=== PATIENT | female | born 1995 | race Caucasian/White ===

== ENCOUNTER 2017-05-18 09:21 | Emergency (ER) | payer MEDICAID ==
[~2017-05-18] VITALS: Ht 160 cm; Wt 101.6 kg
[~2017-05-18 09:21] MED LIST: MOTRIN 600600 MG/TAB PO; PERCOCET 325 MG1 TA2 PO
[2017-05-18 09:26] VITALS: BP 123/73; TEMP 97.1
[2017-05-18] MEDS ORDERED: AMOXICILLIN 50500 MG PO (10:21)
[2017-05-18] MEDS ORDERED: MAGIC MOUTH PO (10:24)
[2017-05-18 10:41] VITALS: PULSE 82
== END 2017-05-18 10:41 | disposition home or self-care (01) ==
LOC: COL.ER 09:21
DX: J02.0 Streptococcal pharyngitis (principal)

== ENCOUNTER 2017-06-23 16:03 | Emergency (ER) | payer MEDICAID ==
[~2017-06-23] VITALS: Ht 160 cm; Wt 81.8 kg
[~2017-06-23 16:03] MED LIST changes: +AMOXICILLIN 50500 MG PO; +MAGIC MOUTH PO
[2017-06-23 16:33] VITALS: BP 137/88; PULSE 87; TEMP 98.6
== END 2017-06-23 18:00 | disposition left against medical advice (07) ==
LOC: COL.ER 16:03
DX: R05 Cough (principal)

== ENCOUNTER 2017-08-11 18:09 | Emergency (ER) | payer BC ==
[~2017-08-11] VITALS: Ht 160 cm; Wt 81.8 kg
[2017-08-11 18:19] VITALS: BP 156/83; PULSE 99; TEMP 98.2
== END 2017-08-11 19:10 | disposition left against medical advice (07) ==
LOC: COL.ER 18:09
DX: Z11.3 Encounter for screening for infections with a predominantly sexual mode of transmission (principal)

== ENCOUNTER 2017-10-22 13:20 | Emergency (ER) | payer BC ==
[~2017-10-22] VITALS: Ht 160 cm; Wt 106.8 kg
[2017-10-22 13:29] VITALS: TEMP 98
[2017-10-22 14:18] LABS: COLLECTION METHOD CLEAN CATCH
[2017-10-22 14:28] LABS: MUCOUS Present /lpf; PH 5 (5-8); SQUAMOUS EPITHELIAL 20-50 /hpf; URINE APPEARANCE Cloudy; URINE BACTERIA Rare /hpf; URINE BILIRUBIN Negative (NEGATIVE); URINE BLOOD Negative (NEGATIVE); URINE COLOR Amber; URINE GLUCOSE Negative (NEGATIVE); URINE KETONE Negative (NEGATIVE); URINE LEUKOCYTE ESTERASE Negative (NEGATIVE); URINE NITRATE Negative (NEGATIVE); URINE PROTEIN(semi-quant) 1+ (NEGATIVE); URINE UROBILINOGEN Negative (NEGATIVE)
[2017-10-22] MEDS ORDERED: MACROBID 1100 MG/CAP PO (16:27)
[2017-10-22] MEDS ORDERED: FLAGYL500 MG PO (16:27)
[2017-10-22 16:53] VITALS: BP 138/103; PULSE 74
[2017-10-22] MEDS ORDERED: ZITHROMAX500 M2 PO (18:54)
== END 2017-10-22 16:47 | disposition home or self-care (01) ==
LOC: COL.ER 13:20
DX: S09.90XA Unspecified injury of head, initial encounter (principal); N39.0 Urinary tract infection, site not specified; N76.0 Acute vaginitis; W22.8XXA Striking against or struck by other objects, initial encounter; Y92.009 Unspecified place in unspecified non-institutional (private) residence as the place of occurrence of the external cause

== ENCOUNTER 2017-11-19 10:14 | Emergency (ER) | payer BC ==
[~2017-11-19] VITALS: Ht 160 cm; Wt 104.5 kg
[~2017-11-19 10:14] MED LIST changes: +FLAGYL500 MG PO; +MACROBID 1100 MG/CAP PO; +ZITHROMAX500 M2 PO
[2017-11-19 10:19] VITALS: BP 122/90; TEMP 98.2
[2017-11-19 10:31] LABS: COLLECTION METHOD CLEAN CATCH
[2017-11-19 10:41] LABS: BASO # 0.1 (0.0-0.2); BASO % 0.5 % (0.0-2.0); EOS # 0.1 (0.0-0.7); EOS % 0.9 % (0-4.0); GRAN # 7.4 (1.4-6.5); GRAN % 67.5 % (42.2-75.2); HEMATOCRIT 39.6 % (37.0-47.0); HEMOGLOBIN 13.4 g/dl (12.5-16.0); LYMPH # 2.6 (1.2-3.4); LYMPH % 23.8 % (20.0-51.0); MEAN CELL VOLUME 88 fl (80.0-100.0); MEAN CORPUSCULAR HEMOGLOBIN 30 pg (27.0-31.0); MEAN CORPUSCULAR HGB CONC 34 g/dl (33.0-37.0); MEAN PLATELET VOLUME 9.3 fl (7.4-10.4); MONO # 0.8 (0.1-0.6); MONO % 6.9 % (1.7-9.3); PLATELET COUNT 496 K/mm3 (130-400); REDCELL DISTRIBUTION WIDTH-CV 12.5 % (11.5-14.5)
[2017-11-19 10:43] LABS: MUCOUS Present /lpf; PH 6 (5-8); URINE APPEARANCE Clear; URINE BACTERIA None Seen /hpf; URINE BILIRUBIN Negative (NEGATIVE); URINE BLOOD Negative (NEGATIVE); URINE COLOR Yellow; URINE GLUCOSE Negative (NEGATIVE); URINE KETONE Negative (NEGATIVE); URINE LEUKOCYTE ESTERASE Negative (NEGATIVE); URINE NITRATE Negative (NEGATIVE); URINE PROTEIN(semi-quant) Negative (NEGATIVE); URINE RBC 0-2 /hpf; URINE UROBILINOGEN Negative (NEGATIVE)
[2017-11-19 11:57] VITALS: PULSE 89
== END 2017-11-19 11:58 | disposition home or self-care (01) ==
LOC: COL.ER 10:14
PROVIDERS: Family Medicine
DX: O20.0 Threatened abortion (principal)

== ENCOUNTER 2017-12-23 18:04 | Emergency (ER) | payer BC ==
[~2017-12-23] VITALS: Ht 160 cm; Wt 102.3 kg
[2017-12-23 18:07] VITALS: BP 124/79; PULSE 109; TEMP 98.4
[2017-12-23 18:36] LABS: BASO # 0.1 (0.0-0.2); BASO % 0.4 % (0.0-2.0); EOS # 0.1 (0.0-0.7); EOS % 0.5 % (0-4.0); GRAN # 9.3 (1.4-6.5); GRAN % 69.6 % (42.2-75.2); HEMATOCRIT 38.4 % (37.0-47.0); HEMOGLOBIN 13.1 g/dl (12.5-16.0); LYMPH # 3.1 (1.2-3.4); LYMPH % 23.2 % (20.0-51.0); MEAN CELL VOLUME 86 fl (80.0-100.0); MEAN CORPUSCULAR HEMOGLOBIN 29 pg (27.0-31.0); MEAN CORPUSCULAR HGB CONC 34 g/dl (33.0-37.0); MEAN PLATELET VOLUME 9.7 fl (7.4-10.4); MONO # 0.8 (0.1-0.6); PLATELET COUNT 477 K/mm3 (130-400); RED BLOOD COUNT 4.47 M/mm3 (4.10-5.30); REDCELL DISTRIBUTION WIDTH-CV 12.1 % (11.5-14.5)
== END 2017-12-23 19:45 | disposition home or self-care (01) ==
LOC: COL.ER 18:04
PROVIDERS: Emergency Medicine
DX: O26.891 Other specified pregnancy related conditions, first trimester (principal); R10.9 Unspecified abdominal pain; Z3A.11 11 weeks gestation of pregnancy

== ENCOUNTER 2017-12-30 19:06 | Emergency (ER) | payer MEDICAID ==
[~2017-12-30] VITALS: Ht 160 cm; Wt 99.1 kg
[2017-12-30 19:09] VITALS: BP 126/76; TEMP 97.7
[2017-12-30 19:56] LABS: COLLECTION METHOD CLEAN CATCH
[2017-12-30 20:08] LABS: MUCOUS Present /lpf; PH 5 (5-8); URINE APPEARANCE Hazy; URINE BACTERIA Rare /hpf; URINE BILIRUBIN Negative (NEGATIVE); URINE BLOOD 3+ (NEGATIVE); URINE COLOR Yellow; URINE GLUCOSE Negative (NEGATIVE); URINE KETONE Negative (NEGATIVE); URINE LEUKOCYTE ESTERASE Negative (NEGATIVE); URINE NITRATE Negative (NEGATIVE); URINE PROTEIN(semi-quant) 1+ (NEGATIVE); URINE RBC 0-2 /hpf; URINE UROBILINOGEN Negative (NEGATIVE)
[2017-12-30 20:45] VITALS: PULSE 89
== END 2017-12-30 20:45 | disposition home or self-care (01) ==
LOC: COL.ER 19:06
PROVIDERS: Emergency Medicine
DX: O20.0 Threatened abortion (principal); Z3A.00 Weeks of gestation of pregnancy not specified

== ENCOUNTER 2018-06-30 21:06 | Inpatient (IN) | payer OTHER, MEDICAID ==
[2018-06-30] VITALS (7 sets, daily range): BP systolic 141–180; BP diastolic 84–100; PULSE 88–96; TEMP 97.9–98.6
[~2018-06-30] VITALS: Ht 167.6 cm; Wt 115.9 kg
--- NOTE | 2018-06-30 21:15 | NUR ---
2114- Patient here to be seen due to c/o of leakage of fluid and abdominal cramping at 38.2 weeks gestation. 2124- Patient placed on EFM at this time. 2134- Vitals 151/95 88 pulse 16 respirations and 97.9 temp. SVE 3-4/100/-1 with fluid return. 2144- Orders received from Dr. Trinidad to admit patient to labor, watch for 2 hours, start pitocin if needed after 2 hour cervical re-check and patient can have epidural whenever.
--- NOTE | 2018-06-30 22:43 | NUR ---
2214- Constanza called for labor epidural at this time 2220- SVE 6/100/+1 2229- SVE 8/100/+1, patient feeling urge to push at this time. Dr. Trinidad called to be at bedside for delivery. 2236- Dr. Trinidad called again due to decelerations in the 60's. Patient 10 cm at this time and placed in hands and knees, with fluid bolus and O2 10L via face mask 2239- Dr. Trinidad arrives at bedside for delivery of 2242- of viable male infant at this time. 2250- Spontaneous delivery of intact placenta. Pitocin infusing. Placenta and cord gases to be sent. No lacerations.
[2018-07-01] VITALS (8 sets, daily range): BP systolic 105–155; BP diastolic 56–97; PULSE 85–103; TEMP 97.5–98
[2018-07-01 00:02] LABS: BASO % 0.2 % (0.0-2.0); EOS # 0.1 (0.0-0.7); EOS % 0.4 % (0-4.0); GRAN # 12.5 (1.4-6.5); GRAN % 73.5 % (42.2-75.2); HEMATOCRIT 41.7 % (37.0-47.0); HEMOGLOBIN 13.8 g/dl (12.5-16.0); LYMPH # 3.2 (1.2-3.4); LYMPH % 18.6 % (20.0-51.0); MEAN CELL VOLUME 85 fl (80.0-100.0); MEAN CORPUSCULAR HEMOGLOBIN 28 pg (27.0-31.0); MEAN CORPUSCULAR HGB CONC 33 g/dl (33.0-37.0); MEAN PLATELET VOLUME 10.5 fl (7.4-10.4); MONO # 1.2 (0.1-0.6); MONO % 6.9 % (1.7-9.3); PLATELET COUNT 504 K/mm3 (130-400); RED BLOOD COUNT 4.93 M/mm3 (4.10-5.30); REDCELL DISTRIBUTION WIDTH-CV 13.9 % (11.5-14.5)
[2018-07-01] MEDS ORDERED: PRENATAL 191 TAB PO (00:41)
[2018-07-01 07:16] LABS: HEMATOCRIT 38.3 % (37.0-47.0); HEMOGLOBIN 12.7 g/dl (12.5-16.0)
[2018-07-01] MEDS ORDERED: PROCARDIA XL 3030 MG PO (08:29)
[2018-07-01] MEDS ORDERED: IBU600 MG PO (08:29)
--- NOTE | 2018-07-01 09:53 | NUR ---
Initial visit; Parents thanked Hay Stacker for offering congratulations and God's blessings for the of their son. Hay Stacker thanked family for choosing [facility].
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
[2018-07-02 00:40] VITALS: BP 141/90; PULSE 82; TEMP 98.3
[2018-07-02 07:47] VITALS: BP 127/68; PULSE 72; TEMP 98.1
== END 2018-07-02 14:05 | disposition home or self-care (01) | DRG 807 ==
LOC: LDRO 21:06 → LDR 22:11 → OB 22:11
PROVIDERS: ADMIT Obstetrics & Gynecology
PROC: 10E0XZZ Delivery of Products of Conception, External Approach (ICD-10-PCS; principal; 2018-06-30)
DX: O76 Abnormality in fetal heart rate and rhythm complicating labor and delivery (principal); Z37.0 Single live birth; Z3A.38 38 weeks gestation of pregnancy; O99.214 Obesity complicating childbirth; O99.89 Other specified diseases and conditions complicating pregnancy, childbirth and the puerperium; N87.9 Dysplasia of cervix uteri, unspecified; O13.5 Gestational [pregnancy-induced] hypertension without significant proteinuria, complicating the puerperium; O43.123 Velamentous insertion of umbilical cord, third trimester

== ENCOUNTER 2020-06-07 03:27 | Emergency (ER) | payer OTHER, MEDICAID ==
[~2020-06-07] VITALS: Ht 160 cm; Wt 90.9 kg
[~2020-06-07 03:27] MED LIST changes: +IBU600 MG PO; +PRENATAL 191 TAB PO; +PROCARDIA XL 3030 MG PO
[2020-06-07 03:30] VITALS: TEMP 97.1
[2020-06-07 04:00] LABS: BASO # 0.1 (0.0-0.2); BASO % 0.5 % (0.0-2.0); EOS % 0.1 % (0-4.0); GRAN % 76.8 % (42.2-75.2); HEMATOCRIT 41.2 % (37.0-47.0); HEMOGLOBIN 13.5 g/dl (12.5-16.0); LYMPH # 2.6 (1.2-3.4); LYMPH % 16.9 % (20.0-51.0); MEAN CELL VOLUME 87 fl (80.0-100.0); MEAN CORPUSCULAR HEMOGLOBIN 29 pg (27.0-31.0); MEAN CORPUSCULAR HGB CONC 33 g/dl (33.0-37.0); MEAN PLATELET VOLUME 9.7 fl (7.4-10.4); MONO # 0.7 (0.1-0.6); MONO % 4.5 % (1.7-9.3); PLATELET COUNT 616 K/mm3 (130-400); RED BLOOD COUNT 4.73 M/mm3 (4.10-5.30); REDCELL DISTRIBUTION WIDTH-CV 12.6 % (11.5-14.5)
[2020-06-07 04:39] LABS: ALANINE AMINOTRANSFERASE 21 U/L (4-34); ALBUMIN 4.6 gm/dL (3.5-5.0); ALKALINE PHOSPHATASE 123 U/L (50-136); ANION GAP 15 mmol/L (7-16); AST,SGOT 24 U/L (15-37); BILIRUBIN,TOTAL 0.2 mg/dL (0.0-1.0); BLOOD UREA NITROGEN 12 mg/dL (7-17); CALCIUM 8.9 mg/dL (8.4-10.2); CARBON DIOXIDE 18 mmol/L (22-30); CHLORIDE 101 mmol/L (98-107); GLUCOSE 172 mg/dL (74-106); POTASSIUM 3.3 mmol/L (3.4-5.0); SODIUM 134 mmol/L (137-145)
[2020-06-07 04:52] LABS: ALCOHOL(ethanol),MEDICAL < 10 mg/dL; TROPONIN-I < 0.012 ng/mL (0.000-0.035)
[2020-06-07 05:44] LABS: TRICYCLIC ANTIDEPRESS URINE NEGATIVE
[2020-06-07 06:13] VITALS: BP 137/83; PULSE 98
== END 2020-06-07 06:19 | disposition home or self-care (01) ==
LOC: COL.ER 03:27
PROVIDERS: Emergency Medicine
DX: R07.89 Other chest pain (principal); F14.90 Cocaine use, unspecified, uncomplicated
CPT/HCPCS: J2060; J2405; J7030

== ENCOUNTER 2020-08-21 18:13 | Emergency (ER) | payer MEDICAID ==
[~2020-08-21] VITALS: Ht 160 cm; Wt 90.9 kg
[2020-08-21 18:26] VITALS: TEMP 97.8
[2020-08-21] MEDS ORDERED: AMOXICILLIN 8751 TAB PO (18:49)
[2020-08-21 18:59] VITALS: BP 115/81; PULSE 89
== END 2020-08-21 18:59 | disposition home or self-care (01) ==
LOC: COL.ER 18:13
DX: K05.20 Aggressive periodontitis, unspecified (principal)

== ENCOUNTER 2021-03-29 04:13 | Emergency (ER) | payer SELFPAY ==
[~2021-03-29] VITALS: Ht 160 cm; Wt 98.2 kg
[~2021-03-29 04:13] MED LIST changes: +AMOXICILLIN 8751 TAB PO
[2021-03-29 04:20] VITALS: TEMP 98
[2021-03-29 04:45] LABS: HEMOGLOBIN 13.5 g/dl (12.5-16.0); MEAN CELL VOLUME 85 fl (80.0-100.0); MEAN CORPUSCULAR HEMOGLOBIN 28 pg (27-31); MEAN CORPUSCULAR HGB CONC 33 g/dl (33.0-37.0); MEAN PLATELET VOLUME 9.2 fl (7.4-10.4); PLATELET COUNT 569 K/mm3 (130-400); RED BLOOD COUNT 4.81 M/mm3 (4.10-5.30); REDCELL DISTRIBUTION WIDTH-CV 12.7 % (11.5-14.5)
[2021-03-29 05:01] LABS: ANION GAP 12 mmol/L (7-16); BLOOD UREA NITROGEN 19 mg/dL (7-19); CALCIUM 9.4 mg/dL (8.4-10.2); CARBON DIOXIDE 20 mmol/L (22-29); CHLORIDE 106 mmol/L (98-107); CREATININE, serum 0.73 mg/dL (0.57-1.11); GLUCOSE 92 mg/dL (70-99); POTASSIUM 3.9 mmol/L (3.5-4.5); SODIUM 138 mmol/L (136-145)
[2021-03-29 05:09] LABS: TROPONIN-I < 0.010 ng/mL (0.00-0.033)
[2021-03-29 05:14] LABS: BAND 2 % (0-10); EOSINOPHIL 1 % (0-4); LYMPHOCYTE 37 % (20.0-51.0); METAMYELOCYTE 1 % (0-0); NEUTROPHILS 51 % (42.0-75.2)
[2021-03-29 05:15] LABS: ANISOCYTOSIS 1+
[2021-03-29 05:20] LABS: C-REACTIVE PROTEIN 1.13 mg/dL (0.00-0.50)
[2021-03-29 05:33] VITALS: BP 129/83; PULSE 93
== END 2021-03-29 05:33 | disposition home or self-care (01) ==
LOC: COL.ER 04:13
PROVIDERS: Emergency Medicine
DX: F41.0 Panic disorder [episodic paroxysmal anxiety] (principal)
CPT/HCPCS: J2060; J7030

== ENCOUNTER → 2021-04-10 | Emergency (ER) | payer MEDICAID | LOC: COL.ER 19:37 | DX: R69 Illness, unspecified (principal) ==

== ENCOUNTER 2021-04-24 00:27 | Emergency (ER) | payer MEDICAID ==
[~2021-04-24] VITALS: Ht 160 cm; Wt 109.1 kg
[2021-04-24 00:31] VITALS: TEMP 97.8
[2021-04-24 01:07] VITALS: BP 145/81; PULSE 72
== END 2021-04-24 01:07 | disposition home or self-care (01) ==
LOC: COL.ER 00:27
DX: F41.9 Anxiety disorder, unspecified (principal)

== ENCOUNTER 2021-05-11 03:17 | Emergency (ER) | payer MEDICAID ==
[~2021-05-11] VITALS: Ht 160 cm; Wt 109.1 kg
[2021-05-11] MEDS ORDERED: XANAX 0.5MG0.5 MG PO (04:32)
[2021-05-11 04:42] VITALS: BP 138/67; PULSE 118; TEMP 97.8
== END 2021-05-11 04:43 | disposition home or self-care (01) ==
LOC: COL.ER 03:17
DX: F41.9 Anxiety disorder, unspecified (principal)

== ENCOUNTER 2021-05-11 07:20 | Emergency (ER) | payer MEDICAID ==
[~2021-05-11] VITALS: Ht 160 cm; Wt 109.1 kg
[~2021-05-11 07:20] MED LIST changes: +XANAX 0.5MG0.5 MG PO
[2021-05-11 07:28] VITALS: TEMP 97.3
[2021-05-11 08:05] VITALS: BP 143/95; PULSE 109
== END 2021-05-11 08:13 | disposition home or self-care (01) ==
LOC: COL.ER 07:20
DX: F41.9 Anxiety disorder, unspecified (principal); Z79.899 Other long term (current) drug therapy

== ENCOUNTER 2021-06-22 05:47 | Emergency (ER) | payer MEDICAID ==
[~2021-06-22] VITALS: Ht 160 cm; Wt 104.5 kg
[2021-06-22 06:07] VITALS: TEMP 97.5
[2021-06-22] MEDS ORDERED: ATIVAN 1MG T1 MG/TAB PO (06:40)
[2021-06-22 06:52] VITALS: BP 136/99; PULSE 101
== END 2021-06-22 07:05 | disposition home or self-care (01) ==
LOC: COL.ER 05:47
DX: F41.9 Anxiety disorder, unspecified (principal); R07.89 Other chest pain

== ENCOUNTER 2021-10-06 05:03 | Emergency (ER) | payer MEDICAID ==
[~2021-10-06] VITALS: Ht 160 cm; Wt 113.2 kg
[~2021-10-06 05:03] MED LIST changes: +ATIVAN 1MG T1 MG/TAB PO
[2021-10-06 05:29] VITALS: BP 117/83; TEMP 97.8
[2021-10-06 06:19] LABS: BASO % 0.1 % (0.0-2.0); EOS # 0.4 K/mm3 (0.0-0.7); EOS % 2.4 % (0.0-4.0); GRAN # 11.7 K/mm3 (1.4-6.5); GRAN % 77.5 % (42.2-75.2); HEMATOCRIT 43.7 % (37.0-47.0); HEMOGLOBIN 14.3 g/dl (12.5-16.0); LYMPH # 2.2 K/mm3 (1.2-3.4); LYMPH % 14.3 % (20.0-51.0); MEAN CELL VOLUME 87 fl (80.0-100.0); MEAN CORPUSCULAR HEMOGLOBIN 29 pg (27-31); MEAN CORPUSCULAR HGB CONC 33 g/dl (33.0-37.0); MEAN PLATELET VOLUME 9.5 fl (7.4-10.4); MONO # 0.8 K/mm3 (0.1-0.6); MONO % 5.1 % (1.7-9.3); PLATELET COUNT 547 K/mm3 (130-400); RED BLOOD COUNT 5.01 M/mm3 (4.10-5.30); REDCELL DISTRIBUTION WIDTH-CV 12.9 % (11.5-14.5)
[2021-10-06] MEDS ORDERED: PRILOSEC 20MG20 MG PO (06:29)
[2021-10-06 06:38] LABS: ALBUMIN 3.8 gm/dL (3.5-5.0); BILIRUBIN,TOTAL 0.3 mg/dL (0.2-1.2); CALCIUM 9.2 mg/dL (8.4-10.2); CREATININE, serum 0.79 mg/dL (0.57-1.11); POTASSIUM 4.2 mmol/L (3.5-4.5); TOTAL PROTEIN 7.6 gm/dL (6.2-8.1)
[2021-10-06 07:06] VITALS: PULSE 103
[2021-10-06] MEDS ORDERED: NORCO 325 MG-51 TAB PO ×2 (17:51→17:53)
== END 2021-10-06 07:06 | disposition home or self-care (01) ==
LOC: COL.ER 05:03
PROVIDERS: Family Medicine
DX: K29.70 Gastritis, unspecified, without bleeding (principal); Z28.311 Partially vaccinated for COVID-19
CPT/HCPCS: C9113; J1790

== ENCOUNTER 2021-10-06 13:35 | Emergency (ER) | payer MEDICAID ==
[~2021-10-06] VITALS: Ht 160 cm; Wt 113.2 kg
[~2021-10-06 13:35] MED LIST changes: +PRILOSEC 20MG20 MG PO
[2021-10-06 13:56] VITALS: TEMP 98
[2021-10-06 16:09] LABS: COLLECTION METHOD CLEAN CATCH
[2021-10-06 16:17] LABS: MUCOUS Present (NOT PRESENT); PH 5 (5-8); URINE APPEARANCE Clear (CLEAR/HAZY); URINE BACTERIA None Seen /hpf (NONE SEEN); URINE BLOOD Negative (NEGATIVE); URINE COLOR Yellow (YELLOW); URINE GLUCOSE Negative (NEGATIVE); URINE KETONE Negative (NEGATIVE); URINE NITRATE Negative (NEGATIVE); URINE PROTEIN(semi-quant) Negative (NEGATIVE); URINE UROBILINOGEN Negative (NEGATIVE)
[2021-10-06 17:20] LABS: AMYLASE 41 U/L (25-125); LIPASE 6 U/L (8-78)
[2021-10-06] MEDS ORDERED: NORCO 325 MG-51 TAB PO ×2 (17:51→17:53)
[2021-10-06 18:06] VITALS: BP 145/90; PULSE 91
== END 2021-10-06 18:06 | disposition home or self-care (01) ==
LOC: COL.ER 13:35
PROVIDERS: Nurse Practitioner Family
DX: R10.13 Epigastric pain (principal); Z32.02 Encounter for pregnancy test, result negative
CPT/HCPCS: C9113; J2270; J2405; J7030; Q9967

== ENCOUNTER → 2021-10-09 | Outpatient (CLI) | payer MEDICAID ==
[~2021-10-09] MED LIST changes: +NORCO 325 MG-51 TAB PO
== END ==
LOC: COL.RAD 07:30
DX: R10.13 Epigastric pain (principal); R10.11 Right upper quadrant pain; R11.0 Nausea

== ENCOUNTER 2021-10-11 05:32 | Emergency (ER) | payer MEDICAID | END 2021-10-11 05:57 | disposition left against medical advice (07) | LOC: COL.ER 05:32 | DX: R69 Illness, unspecified (principal) ==

== ENCOUNTER 2021-10-19 03:13 | Emergency (ER) | payer MEDICAID ==
[~2021-10-19] VITALS: Ht 160 cm; Wt 90.9 kg
[2021-10-19 03:31] VITALS: BP 145/83; PULSE 92; TEMP 99.6
== END 2021-10-19 04:10 | disposition left against medical advice (07) ==
LOC: COL.ER 03:13
DX: R07.2 Precordial pain (principal); F41.9 Anxiety disorder, unspecified; Z28.311 Partially vaccinated for COVID-19

== ENCOUNTER 2022-07-31 10:34 | Emergency (ER) | payer MEDICAID ==
[~2022-07-31] VITALS: Ht 160 cm; Wt 100.0 kg
[2022-07-31 10:43] VITALS: TEMP 98.6
[2022-07-31 12:43] VITALS: BP 126/87; PULSE 99
== END 2022-07-31 12:46 | disposition home or self-care (01) ==
LOC: COL.ER 10:34
PROVIDERS: Physician Assistant
DX: Z77.098 Contact with and (suspected) exposure to other hazardous, chiefly nonmedicinal, chemicals (principal); R51.9 Headache, unspecified; R06.02 Shortness of breath; Z28.311 Partially vaccinated for COVID-19

== ENCOUNTER 2023-10-02 20:32 | Emergency (ER) | payer MEDICAID ==
[~2023-10-02] VITALS: Ht 162.6 cm; Wt 113.6 kg
[2023-10-02 21:08] LABS: BASO # 0.1 K/mm3 (0.0-0.2); BASO % 0.4 % (0.0-2.0); EOS # 0.6 K/mm3 (0.0-0.7); EOS % 4.3 % (0.0-4.0); GRAN # 9.1 K/mm3 (1.4-6.5); GRAN % 64.4 % (42.2-75.2); HEMATOCRIT 40.8 % (37.0-47.0); HEMOGLOBIN 13.5 g/dl (12.5-16.0); LYMPH # 3.4 K/mm3 (1.2-3.4); LYMPH % 23.9 % (20.0-51.0); MEAN CELL VOLUME 86 fl (80.0-100.0); MEAN CORPUSCULAR HEMOGLOBIN 29 pg (27-31); MEAN CORPUSCULAR HGB CONC 33 g/dl (33.0-37.0); MEAN PLATELET VOLUME 9.3 fl (7.4-10.4); MONO % 6.7 % (1.7-9.3); PLATELET COUNT 504 K/mm3 (130-400); RED BLOOD COUNT 4.72 M/mm3 (4.10-5.30); REDCELL DISTRIBUTION WIDTH-CV 12.4 % (11.5-14.5)
[2023-10-02 21:27] LABS: ALBUMIN 3.8 g/dL (3.5-5.0); BILIRUBIN,TOTAL 0.4 mg/dL (0.2-1.2); C-REACTIVE PROTEIN 0.78 mg/dL (0.00-0.50); CALCIUM 8.9 mg/dL (8.4-10.2); CREATININE, serum 0.73 mg/dL (0.57-1.11); POTASSIUM 4.2 mEq/L (3.5-4.5); TOTAL PROTEIN 7.1 g/dl (6.2-8.1)
[2023-10-02] MEDS ORDERED: Ketorolac 30 MG/ML VIAL IV ONE (21:45)
[2023-10-02 22:27] LABS: COLLECTION METHOD CLEAN CATCH
[2023-10-02 22:34] LABS: PH 5.5 (5.0-8.5); URINE APPEARANCE CLEAR (CLEAR/HAZY); URINE BLOOD 2+ (NEGATIVE); URINE COLOR YELLOW (YELLOW); URINE GLUCOSE NEGATIVE (NEGATIVE); URINE KETONE 2+ (NEGATIVE); URINE NITRATE NEGATIVE (NEGATIVE); URINE PROTEIN(semi-quant) NEGATIVE (NEGATIVE)
[2023-10-02] MEDS ORDERED: Iohexol 300 - 100 ML VIAL IV ONE (22:51)
[2023-10-02] MEDS ORDERED: NS 50 ML IV ONE (22:54)
[2023-10-03] MEDS ORDERED: Mag/Al Hydrox/Simeth Susp 30 ML CUP PO ONE (00:30)
[2023-10-03] MEDS ORDERED: Famotidine 20 MG TAB PO ONE (00:30)
[2023-10-03 00:59] VITALS: BP 131/79; PULSE 89; TEMP 98.4
== END 2023-10-03 01:02 | disposition home or self-care (01) ==
LOC: COL.ER 20:32
PROVIDERS: Nurse Practitioner Primary Care
DX: K52.9 Noninfective gastroenteritis and colitis, unspecified (principal)
CPT/HCPCS: J1885; Q9967